=== PATIENT | female | born 1980 | race Caucasian/White ===

== ENCOUNTER → 2018-05-28 | Outpatient (CLI) | payer OTHER ==
[~2018-05-28] MED LIST: VALA10004 PO
[2018-05-28 16:22] LABS: BASOPHILS # (AUTO) 0.07 x10^3/uL (0-0.1); BASOPHILS % (AUTO) 1 % (0-1); EOSINOPHILS # (AUTO) 0.23 x10^3/uL (0-0.4); EOSINOPHILS % (AUTO) 2 % (1-7); LYMPHOCYTES # (AUTO) 3.34 x10^3/uL (1-3.4); LYMPHOCYTES % (AUTO) 30 % (22-44); MD NO; MEAN CORPUSCULAR HEMOGLOBIN 30.6 pg (27.0-34.8); MEAN CORPUSCULAR HGB CONC 33.5 g/dL (32.4-35.8); MEAN CORPUSCULAR VOLUME 91.6 fL (80-100); MEAN PLATELET VOLUME 8.5 fL (7.4-10.4); MONOCYTES # (AUTO) 0.56 x10^3/uL (0.2-0.8); MONOCYTES % (AUTO) 5 % (2-9); NEUTROPHILS # (AUTO) 7.11 x10^3/uL (1.8-6.8); NEUTROPHILS % (AUTO) 63 % (42-75); PLATELET COUNT 266 x10^3/uL (130-400); RED BLOOD COUNT 4.56 x10^6/uL (3.82-5.3)
[2018-05-28 16:35] LABS: ALANINE AMINOTRANSFERASE 42 U/L (12-78); ANION GAP 6 mmol/L (5-15); CALCIUM 8.3 mg/dL (8.5-10.1); CHLORIDE 109 mmol/L (98-107); CREATININE 0.88 mg/dL (0.55-1.02)
[2018-05-28 16:36] LABS: MICROSCOPIC INDICATED
[2018-05-28 16:39] LABS: ALKALINE PHOSPHATASE 121 U/L (45-117); BILIRUBIN,TOTAL 0.3 mg/dL (0.2-1.0); TOTAL PROTEIN 7.7 g/dL (6.4-8.2)
[2018-05-28 16:47] LABS: CULTURE INDICATED? YES
== END | disposition home or self-care (01) ==
LOC: STAR 15:32
PROVIDERS: ATTEND Obstetrics & Gynecology
DX: Z01.818 Encounter for other preprocedural examination (principal); N81.4 Uterovaginal prolapse, unspecified; N39.3 Stress incontinence (female) (male)
CPT/HCPCS: 36415; 80053; 81001; 84702; 85025; 87086; 87147

== ENCOUNTER 2018-06-04 08:42 | Inpatient (IN) | payer OTHER ==
[~2018-06-04] VITALS: Ht 160 cm; Wt 86.9 kg
[2018-06-04] MEDS ORDERED: LACTATED RINGERS 1,000 ML IV SCH (09:06)
[2018-06-04 09:19] LABS: HCG UR SG 1.022 (1.003-1.030)
[2018-06-04 09:29] VITALS: BP 127/79
[2018-06-04] MEDS ORDERED: ACETAMINOPHEN 500 MG TABLET PO ONE (09:30)
[2018-06-04] MEDS ORDERED: SCOPOLAMINE PATCH, 1.5MG PATCH.TD72 TD ONE (09:30)
[2018-06-04] MEDS ORDERED: GABAPENTIN 300 MG CAPSULE PO ONE (09:30)
[2018-06-04] MEDS ORDERED: MIDAZOLAM 1 MG/ML, 2ML ONE (09:45)
[2018-06-04] MEDS ORDERED: FENTANYL PF 250 MCG/5ML ONE ×2 (09:46→13:50)
[2018-06-04] MEDS ORDERED: BUPIVACAINE/PF 0.25% ONE (12:20)
[2018-06-04] MEDS ORDERED: BUPIVACAINE/PF-EPI 0.5% 1:200K ONE (12:20)
[2018-06-04] MEDS ORDERED: FLUORESCEIN SODIUM 500 MG/5 ML ONE (12:20)
[2018-06-04] MEDS ORDERED: EPINEPHRINE 1 MG/ML, 1ML ONE ×2 (12:21→14:00)
[2018-06-04] MEDS ORDERED: KETOROLAC 30 MG/1 ML ONE (12:39)
[2018-06-04] MEDS ORDERED: PROMETHAZINE 12.5 MG SUPP PR PRN (13:00)
[2018-06-04] MEDS ORDERED: PROMETHAZINE 25 MG SUPP PR PRN (13:00)
[2018-06-04] MEDS ORDERED: ONDANSETRON 2MG/ML, 2ML IV PRN ×2 (13:00→17:00)
[2018-06-04] MEDS ORDERED: ONDANSETRON ODT 8 MG PO PRN (13:00)
[2018-06-04] MEDS ORDERED: OXYcodone 5 MG/5 ML ORAL.SOL UDC PO PRN (13:00)
[2018-06-04] MEDS ORDERED: HALOPERIDOL 5 MG/ML IV PRN (13:00)
[2018-06-04] MEDS ORDERED: LABETALOL 5MG/ML, 20ML IV PRN (13:00)
[2018-06-04] MEDS ORDERED: PROMETHAZINE 25 MG/ML, 1ML IM PRN ×2 (13:00)
[2018-06-04] MEDS ORDERED: MEPERIDINE/PF 25MG/0.5ML IVPush PRN (13:00)
[2018-06-04] MEDS ORDERED: PROMETHAZINE 25 MG/ML, 1ML IV PRN (13:00)
[2018-06-04] MEDS ORDERED: HYDROmorphone 2 MG/ML, 1ML IVPush PRN (13:00)
[2018-06-04] MEDS ORDERED: FENTANYL PF 100 MCG/2ML IV PRN (13:00)
[2018-06-04] MEDS ORDERED: hydrALAzine 20 MG/ML, 1ML IV PRN (13:00)
[2018-06-04] MEDS ORDERED: MORPHINE SULFATE 4 MG/ML, 1ML IVPush PRN (13:00)
[2018-06-04] MEDS ORDERED: ONDANSETRON 2MG/ML, 2ML ONE (13:49)
[2018-06-04] MEDS ORDERED: PROPOFOL 10 MG/ML, 20ML ONE (13:49)
[2018-06-04] MEDS ORDERED: ROCURONIUM 10MG/ML,5ML ONE (13:49)
[2018-06-04] MEDS ORDERED: NEOSTIGMINE 1 MG/ML, 10ML ONE (13:49)
[2018-06-04] MEDS ORDERED: GLYCOPYRROLATE 0.2MG/1ML, 5ML ONE (13:49)
[2018-06-04] MEDS ORDERED: CEFAZOLIN 1,000 MG ONE (13:49)
[2018-06-04] MEDS ORDERED: DEXAMETHASONE 4 MG/ML, 1ML ONE (13:49)
[2018-06-04] MEDS ORDERED: LIDOCAINE 1%, 20ML ONE (14:01)
[2018-06-04] MEDS ORDERED: THROMBIN 20,000 UNIT VIAL TP ONE (14:11)
[2018-06-04] MEDS ORDERED: MEPERIDINE/PF 25MG/ML,1ML ONE (15:17)
[2018-06-04] MEDS ORDERED: OXYcodone 5 MG/5 ML ORAL.SOL UDC ONE (15:17)
[2018-06-04] MEDS: LACTATED RINGERS 1,000 ML IV SCH (16:55)
[2018-06-04] MEDS ORDERED: OXYcodone/APAP 5/325MG TABLET PO PRN (17:00)
[2018-06-04] MEDS ORDERED: KETOROLAC 30 MG/1 ML IV PRN (17:00)
[2018-06-04] MEDS: IBUPROFEN 600 MG TABLET PO SCH (20:12)
[2018-06-04] MEDS: SODIUM CHLORIDE FLUSH 10ML SYR IVF SCH (20:12)
[2018-06-04 20:22] VITALS: BP 101/59
[2018-06-05 00:51] VITALS: BP 94/59
[2018-06-05] MEDS: LACTATED RINGERS 1,000 ML IV SCH ×2 (01:00→09:19)
[2018-06-05 05:12] VITALS: BP 95/59
[2018-06-05] MEDS: IBUPROFEN 600 MG TABLET PO SCH (05:36)
[2018-06-05 07:59] VITALS: BP 100/64
[2018-06-05] MEDS: SODIUM CHLORIDE FLUSH 10ML SYR IVF SCH (09:20)
[2018-06-05] MEDS ORDERED: OXYC-302 PO (09:22)
[2018-06-05] MEDS ORDERED: IBUP-1222 PO (09:25)
== END 2018-06-05 10:05 | disposition home or self-care (01) | DRG 743 ==
LOC: OUT 08:42 → 4NOR 16:25 → OUT 16:31 → DCLOUNGE 06-05 10:05
PROVIDERS: ADMIT Obstetrics & Gynecology; ATTEND Obstetrics & Gynecology
PROC: 0JQC0ZZ Repair Pelvic Region Subcutaneous Tissue and Fascia, Open Approach (ICD-10-PCS; 2018-06-04)
PROC: 0TSD0ZZ Reposition Urethra, Open Approach (ICD-10-PCS; 2018-06-04)
PROC: 0UT6FZZ Resection of Left Fallopian Tube, Via Natural or Artificial Opening With Percutaneous Endoscopic Assistance (ICD-10-PCS; 2018-06-04)
PROC: 0JQC0ZZ Repair Pelvic Region Subcutaneous Tissue and Fascia, Open Approach (ICD-10-PCS; principal; 2018-06-04 11:00)
PROC: 0UT9FZZ Resection of Uterus, Via Natural or Artificial Opening With Percutaneous Endoscopic Assistance (ICD-10-PCS; 2018-06-04 11:00)
DX: N81.2 Incomplete uterovaginal prolapse (principal); D06.9 Carcinoma in situ of cervix, unspecified; N39.46 Mixed incontinence; K46.9 Unspecified abdominal hernia without obstruction or gangrene; Z98.51 Tubal ligation status
CPT/HCPCS: 36415; J3490; 81025; 85014; 85018; 86850; 86900; 88307; G0378; J0171; J0690; J1100; J1885; J2175; J2250; J2405; J2704; J2710; J3010; C1771; J7120